=== PATIENT | male | born 1995 | race Caucasian/White ===

== ENCOUNTER 2019-05-14 21:19 | Emergency (ER) | payer OTHER ==
--- NOTE | 2019-05-14 21:47 | EDM.PDOC ---
ED HPI GENERAL MEDICAL PROBLEM - General Chief Complaint: General Stated Complaint: SUICIDAL THOUGHTS Time Seen by Provider: 05/14/19 21:29 Source of Information: Reports: Patient, Police History Limitations: Reports: No Limitations - History of Present Illness INITIAL COMMENTS - FREE TEXT/NARRATIVE: Patient to the emergency department with the [facility] department where he was upset earlier this evening and arguing with both parents. This argument was on 2 separate text and phone calls as both parents are in another state. The patient did send his parents as well as another person a picture of him holding a gun to his head. He advised that he had thought about hurting himself but he knew that he really would not. The patient advised after this he did speak to both parents at the same time as well as his boss and he does feel better now and he does not feel like hurting himself. The patient advises that he does have a history of being admitted to a psychiatric facility in 2016 or 2017 for expressing thoughts of hurting himself at that time as well. The patient denies taking any current medications. He denies any illicit drug use he does chew tobacco no cigarette smoking and does have 2 beers a day on the weekend. 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 The patient denies any medical history Onset: Today, Sudden Duration: Hour(s): Severity: Severe Improves with: Reports: Other (Talking with his boss and his family) Worsens with: Reports: None Context: Reports: Other (Had thoughts of hurting himself) Associated Symptoms: Reports: No Other Symptoms. Denies: Chest Pain, Cough, Headaches, Nausea/Vomiting Treatments SCHOOL PRINCIPAL: Reports: Other (see below) (none) - Related Data Allergies Allergy/AdvReac Type Severity Reaction Status Date / Time No Known Allergies Allergy Verified 05/14/19 21:20 Home Meds: Home Meds . [No Known Home Meds] 05/14/19 [History] Past Medical History - Past Health History Medical/Surgical History: Denies Medical/Surgical History Social & Family History - Family History Family Medical History: Noncontributory - Tobacco Use Years of Tobacco use: 5 Packs/Tins Daily: 0.5 - Alcohol Use Alcohol Use History: Yes - Living Situation & Occupation Living situation: Reports: Single Occupation: Employed ED ROS GENERAL - Review of Systems Review Of Systems: See Below Constitutional: Reports: No Symptoms HEENT: Reports: No Symptoms Respiratory: Reports: No Symptoms. Denies: Shortness of Breath Cardiovascular: Reports: No Symptoms. Denies: Chest Pain GI/Abdominal: Reports: No Symptoms. Denies: Abdominal Pain, Nausea, Vomiting : Reports: No Symptoms Musculoskeletal: Reports: No Symptoms Skin: Reports: No Symptoms Neurological: Reports: No Symptoms Psychiatric: Denies: Homicidal Ideation, Suicidal Ideation (Currently denies any suicidal or homicidal ideations, did have suicidal ideations earlier today) ED EXAM, GENERAL - Physical Exam Exam: See Below Exam Limited By: No Limitations General Appearance: Alert, WD/WN, No Apparent Distress Ears: Normal External Exam Nose: Normal Inspection Throat/Mouth: Normal Inspection, Normal Voice, No Airway Compromise Head: Atraumatic, Normocephalic Neck: Normal Inspection, Supple, Non-Tender, Full Range of Motion Respiratory/Chest: No Respiratory Distress, Lungs Clear, Normal Breath Sounds, Chest Non-Tender Cardiovascular: Normal Peripheral Pulses, Regular Rate, Rhythm, No Murmur Peripheral Pulses: 2+: Radial (L) GI/Abdominal: Soft, Non-Tender Back Exam: Normal Inspection, Full Range of Motion Extremities: Normal Inspection, Normal Range of Motion, Non-Tender, Normal Capillary Refill Neurological: Alert, Oriented, Normal Cognition, Normal Gait, No Motor/Sensory Deficits Psychiatric: Normal Affect, Normal Mood, Other (Does have normal mood and affect with good eye contact) Skin Exam: Warm, Dry, Intact, Normal Color, No Rash Course - Vital Signs Text/Narrative:: 2137 I called and spoke to the [facility] and spoke with the screener Ana who is going to do a psychiatric screening for the patient and at that point we will make a decision on disposition. 2151 Ana the mental health screener did speak with the patient and she feels that the patient is very upbeat and the patient already has a plan to follow-up talking with his parents tomorrow and a safety plan as well as involving his employer. The patient also agrees to work on setting up outpatient counseling as well as a phone call from Ana this coming week. The patient does agree if he has any further thoughts of harming himself that he will come to the emergency department. The patient's gun that he did have was a weapon that he purchased in [place] however he advises that he did give this weapon to a coworker who is going to keep it for him until he has no other problems. Last Recorded V/S: Last Vital Signs Temp 36.6 C 05/14/19 21:20 Pulse 74 05/14/19 21:20 Resp 16 05/14/19 21:20 BP 146/77 H 05/14/19 21:20 Pulse Ox 98 05/14/19 21:20 Departure - Departure Time of Disposition: 21:54 Disposition: Home, Self-Care 01 Condition: Good Clinical Impression: Impulsiveness - Discharge Information *PRESCRIPTION DRUG MONITORING PROGRAM REVIEWED*: Not Applicable *COPY OF PRESCRIPTION DRUG MONITORING REPORT IN PATIENT DARSHAN: Not Applicable Instructions: Impulse Control Disorders Forms: ED Department Discharge Additional Instructions: Follow-up with Ana at [facility] for other resources and counseling as discussed Return to the emergency department immediately if you develop any thoughts of harming yourself or anyone else Follow-up with your family doctor this week, call Friday for an appointment time Sepsis Event Note - Evaluation Sepsis Screening Result: No Definite Risk - Focused Exam Vital Signs: Vital Signs Temp Pulse Resp BP Pulse Ox 05/14/19 21:20 36.6 C 74 16 146/77 H 98 Date Exam was Performed: 05/14/19 Time Exam was Performed: 22:03 - Problem List & Annotations (1) Impulsiveness SNOMED Code(s): 189863084 Code(s): R45.87 - IMPULSIVENESS Status: Acute Priority: Medium - Problem List Review Problem List Initiated/Reviewed/Updated: Yes - Assessment/Plan Plan: As above
== END 2019-05-14 22:05 | disposition home or self-care (01) ==
LOC: CC.ED 21:19
DX: R45.87 Impulsiveness (principal); F17.210 Nicotine dependence, cigarettes, uncomplicated
CPT/HCPCS: 99284